=== PATIENT | male | born 1975 | race Caucasian/White ===

== ENCOUNTER 2017-11-14 13:05 | Emergency (ER) | payer BC ==
[2017-11-14 13:27] VITALS: BP 134/94
[2017-11-14] MEDS ORDERED: methylPREDNISolone Sodium Succinate 125 MG/2 ML SDV IM ONE (14:08)
[2017-11-14] MEDS ORDERED: Ketorolac 60 MG/2 ML SDV IM ONE (14:08)
--- NOTE | 2017-11-14 14:17 | EDM.PDOC ---
ED HPI GENERAL MEDICAL PROBLEM - General Chief Complaint: Neck Problem Stated Complaint: LOW BACK, LEFT SHOULDER PAIN Time Seen by Provider: 11/14/17 13:55 Source of Information: Reports: Patient History Limitations: Reports: No Limitations - History of Present Illness INITIAL COMMENTS - FREE TEXT/NARRATIVE: Patient presents with neck and upper back pain for two days. He also has some tingling and occasional weakness in left hand. A couple years ago he had a cervical spine fracture and has chronic pain but worse the last two days. He did go through PT but never had MRI or surgery. No recent injuries or falls. Denies kidney disease. He works as a [employer] and is supposed to start a shift in two hours; he doesn't think he can tolerate this right now. Lower Back Pain Score (Numeric/FACES): 9 - Related Data Allergies Allergy/AdvReac Type Severity Reaction Status Date / Time No Known Drug Allergies Allergy Cannot Verified 05/27/15 15:06 Remember Home Meds: Home Meds . [No Known Home Meds] 05/28/15 [History] Past Medical History - Past Health History Medical/Surgical History: Denies Medical/Surgical History HEENT History: Reports: Impaired Vision Gastrointestinal History: Reports: GERD, Hiatal Hernia Musculoskeletal History: Reports: Back Pain, Chronic Other Musculoskeletal History: cervical neck fx in 2016 Neurological History: Reports: Headaches, Chronic, Migraines Psychiatric History: Reports: Depression - Infectious Disease History Infectious Disease History: Reports: Chicken Pox - Past Surgical History HEENT Surgical History: Reports: Oral Surgery GI Surgical History: Reports: Appendectomy, Colonoscopy, EGD Other GI Surgeries/Procedures: hiatal hernia repaired Musculoskeletal Surgical History: Reports: Arthroscopic Knee Other Musculoskeletal Surgeries/Procedures:: Carpal tunnel release and ulnar nerve transposition. tendonities surgery Social & Family History - Tobacco Use Smoking Status *Q: Current Every Day Smoker Years of Tobacco use: 27 Packs/Tins Daily: 0.5 Used Tobacco, but Quit: No Second Hand Smoke Exposure: No - Caffeine Use Caffeine Use: Reports: Coffee, Soda Other Caffeine Use: regular mt. dew - Alcohol Use Days Per Week of Alcohol Use: 2 Number of Drinks Per Day: 12 Total Drinks Per Week: 24 - Recreational Drug Use Recreational Drug Use: No ED ROS GENERAL - Review of Systems Review Of Systems: See Below Constitutional: Denies: Fever, Chills HEENT: Denies: Vision Change Respiratory: Denies: Shortness of Breath, Cough Cardiovascular: Denies: Chest Pain, Lightheadedness, Syncope GI/Abdominal: Denies: Abdominal Pain, Diarrhea, Vomiting : Reports: No Symptoms Musculoskeletal: Reports: Neck Pain, Back Pain Skin: Denies: Cyanosis, Jaundice, Mottled, Pallor, Diaphoresis Neurological: Denies: Confusion, Dizziness, Headache Psychiatric: Denies: Agitation, Anxiety, Confusion ED EXAM, UPPER BACK/NECK PAIN - Physical Exam Exam: See Below Exam Limited By: No Limitations General Appearance: Alert, WD/WN, No Apparent Distress Eye Exam: Bilateral Eye: EOMI, Normal Inspection, PERRL Ears Exam: Normal External Exam, Hearing Grossly Normal Nose Exam: Normal Inspection, No Blood Throat/Mouth Exam: Normal Lips, Normal Voice, No Airway Compromise Head Exam: Atraumatic, Normocephalic Neck Exam: Paraspinous Muscle Tender (left), Spinous Processes Tender (mild around C5,6) Cardiovascular/Respiratory: Regular Rate, Rhythm, Normal Breath Sounds, No Respiratory Distress Back Exam: Vertebral Tenderness (mild around T3,4) Extremities: Normal Inspection, Other (5/5 strength of hands, arms, straight leg raise, foot dorsiflexion/plantar flexion with resisted full ROM.) Neurologic: No Motor/Sensory Deficits, Alert, Normal Mood/Affect, Oriented x 3 Psychiatric: Normal Affect, Normal Mood Skin Exam: Normal Color, Warm/Dry Course - Vital Signs Last Recorded V/S: Last Vital Signs Temp 97.5 F 11/14/17 13:21 Pulse 65 11/14/17 13:21 Resp 20 11/14/17 13:21 BP 134/94 H 11/14/17 13:21 Pulse Ox 97 11/14/17 13:21 - Orders/Labs/Meds Meds: Medications Discontinued Medications Generic Name Dose Route Start Last Admin Trade Name Freq PRN Reason Stop Dose Admin Ketorolac Tromethamine 60 mg 11/14/17 14:08 Toradol IM 11/14/17 14:09 ONETIME ONE Methylprednisolone Sodium Succinate 125 mg 11/14/17 14:08 Solu-Medrol IM 11/14/17 14:09 ONETIME ONE - Re-Assessments/Exams Free Text/Narrative Re-Assessment/Exam: 11/14/17 14:21 Discussed findings and treatment plan recommendations with patient. With no recent injury xrays/CT not likely to be helpful and the next step to evaluate his nerves would be an MRI. I expect him to notice improvement in the short term with the NSAIDS and steroid, but long-term improvement may require evaluation and treatment by an orthopedic doctor or neurosurgeon. I advised follow up with his PCP tomorrow to set this up. Patient remained stable throughout ER course and was discharged to home following the injections. Departure - Departure Time of Disposition: 14:11 Disposition: Home, Self-Care 01 Condition: Good Clinical Impression: Neck pain on left side, Chronic upper back pain - Discharge Information Referrals: Savi Frost MD [Primary Care Provider] - Additional Instructions: 1. Drink 8 cups of water daily. 2. Take the steroid as directed. 3. Take Naproxen 400 mg every 12 hours or Ibuprofen 600 mg every 8 hours (not both) for at least 4-5 days then as needed. 4. Call your PCP tomorrow morning for appointment to get rechecked and evaluated for referral to specialist and/or MRI.
== END 2017-11-14 14:22 | disposition home or self-care (01) ==
LOC: KA.ED 13:05
DX: G89.29 Other chronic pain (principal); M54.6 Pain in thoracic spine; M54.2 Cervicalgia; F17.210 Nicotine dependence, cigarettes, uncomplicated
CPT/HCPCS: 96372; 99283; J1885; J2930

== ENCOUNTER 2017-11-30 11:12 | Observation (INO) | payer BC ==
--- NOTE | 2017-11-30 11:30 | EDM.PDOC ---
ED HPI GENERAL MEDICAL PROBLEM - General Chief Complaint: Chest Pain Stated Complaint: Chest Pain Time Seen by Provider: 11/30/17 11:21 Source of Information: Reports: Patient History Limitations: Reports: No Limitations - History of Present Illness INITIAL COMMENTS - FREE TEXT/NARRATIVE: PATIENT IS A 42-YEAR-OLD GENTLEMAN WHO PRESENTS TO THE EMERGENCY DEPARTMENT THIS MORNING VIA EMS FOR COMPLAINT OF SUBSTERNAL CHEST PAIN. PATIENT STATES THAT HE WAS AWOKEN AT 0300 TODAY WITH A SENSATION OF CHEST PRESSURE AND TIGHTENING SOME RADIATION IN MIDDLE OF CHEST AND TO LEFT SIDE OF CHEST, BUT NOT EXTENDING TO EXTREMITY OR FACE. PATIENT STATES THAT PAIN PERSISTED, ALTHOUGH HE WENT TO WORK AT 0630 TODAY. PAIN DID NOT RESOLVE, SO HE PRESENTED TO [facility] AND WAS EVALUATED THERE. PROVIDER NOTICED EKG CHANGES, GAVE NITROGLYCERIN SUBLINGUAL AND PAIN WAS SAID TO DIMINISH. EMS WAS CONTACTED AND PATIENT WAS TRANSPORTED TO ER. DURING TRANSPORT, CHEST PAIN PERSISTED, SO PATIENT WAS GIVEN NITROGLYCERIN SUBLINGUAL AND PAIN RESOLVED AGAIN. PATIENT DENIES FAMILY HISTORY OF EARLY CARDIAC INCIDENT, ANY CARDIAC HISTORY OR EVALUATION AT ALL, RECENT UPPER RESPIRATORY INFECTION, OUT OF COUNTRY TRAVEL, LOWER EXTREMITY EDEMA, FEVER, ANY TRAUMA, NAUSEA, DIARRHEA, VOMITING, OR SIMILAR SYMPTOMS IN THE PAST. Onset: Today Onset Date: 11/30/17 Onset Time: 03:00 Duration: Improving Location: Reports: Chest Quality: Reports: Pressure Severity: Mild Improves with: Reports: Medication Worsens with: Reports: None Context: Reports: Other (WHILE AT REST) Treatments RESEARCH DIETITIAN: Reports: Nitroglycerin - Related Data Allergies Allergy/AdvReac Type Severity Reaction Status Date / Time No Known Drug Allergies Allergy Cannot Verified 11/30/17 11:36 Remember Home Meds: Home Meds Cyclobenzaprine HCl [Cyclobenzaprine HCl] 10 mg PO BEDTIME 11/30/17 [History] Ibuprofen 600 mg PO Q4H PRN 11/30/17 [History] Past Medical History - Past Health History Medical/Surgical History: Denies Medical/Surgical History HEENT History: Reports: Impaired Vision Gastrointestinal History: Reports: GERD, Hiatal Hernia Musculoskeletal History: Reports: Back Pain, Chronic Other Musculoskeletal History: cervical neck fx in 2016 Neurological History: Reports: Headaches, Chronic, Migraines Psychiatric History: Reports: Depression - Infectious Disease History Infectious Disease History: Reports: Chicken Pox - Past Surgical History HEENT Surgical History: Reports: Oral Surgery GI Surgical History: Reports: Appendectomy, Colonoscopy, EGD Other GI Surgeries/Procedures: hiatal hernia repaired Musculoskeletal Surgical History: Reports: Arthroscopic Knee Other Musculoskeletal Surgeries/Procedures:: Carpal tunnel release and ulnar nerve transposition. tendonities surgery Social & Family History - Tobacco Use Smoking Status *Q: Current Every Day Smoker Years of Tobacco use: 27 Packs/Tins Daily: 0.5 Used Tobacco, but Quit: No Second Hand Smoke Exposure: No - Caffeine Use Caffeine Use: Reports: Coffee, Soda Other Caffeine Use: regular mt. dew - Alcohol Use Days Per Week of Alcohol Use: 2 Number of Drinks Per Day: 12 Total Drinks Per Week: 24 - Recreational Drug Use Recreational Drug Use: No ED ROS GENERAL - Review of Systems Review Of Systems: ROS reveals no pertinent complaints other than HPI. Constitutional: Reports: No Symptoms HEENT: Reports: No Symptoms Respiratory: Reports: No Symptoms Cardiovascular: Reports: Chest Pain, Palpitations Endocrine: Reports: No Symptoms GI/Abdominal: Reports: No Symptoms : Reports: No Symptoms Musculoskeletal: Reports: No Symptoms Skin: Reports: No Symptoms Neurological: Reports: No Symptoms Psychiatric: Reports: No Symptoms Hematologic/Lymphatic: Reports: No Symptoms Immunologic: Reports: No Symptoms ED EXAM, GENERAL - Physical Exam Exam: See Below Exam Limited By: No Limitations General Appearance: Alert, WD/WN, No Apparent Distress Eye Exam: Bilateral Eye: Normal Inspection Nose: Normal Inspection, Normal Mucosa, No Blood Throat/Mouth: Normal Inspection, Normal Oropharynx, No Airway Compromise Head: Atraumatic, Normocephalic Neck: Normal Inspection, Supple, Non-Tender, Full Range of Motion Respiratory/Chest: No Respiratory Distress, Lungs Clear, Normal Breath Sounds, No Accessory Muscle Use Cardiovascular: Normal Peripheral Pulses, Regular Rate, Rhythm, No Murmur GI/Abdominal: Normal Bowel Sounds, Soft, Non-Tender, No Organomegaly, No Distention, No Abnormal Bruit, No Mass Back Exam: Normal Inspection Extremities: Normal Inspection, No Pedal Edema Neurological: Alert, Oriented, Normal Cognition Psychiatric: Normal Affect, Normal Mood Skin Exam: Warm, Dry, Intact, Normal Color, No Rash Lymphatic: No Adenopathy EKG INTERPRETATION EKG Date: 11/30/17 Time: 11:25 Rhythm: NSR [place]: Normal P-Wave: Present QRS: RBBB QT: Normal Comparison: NA - No Prior EKG EKG Interpretation Comments: T WAVE DEPRESSION LATERAL LEAD Course - Orders/Labs/Meds Orders: Active Orders 24 hr Category Date Time Status EKG Documentation Completion [RC] ASDIRECTED Care 11/30/17 11:23 Ordered Chest 2V [CR] Stat Exams 11/30/17 11:21 Ordered CBC WITH AUTO DIFF [HEME] Stat Lab 11/30/17 11:21 Ordered COMPREHENSIVE METABOLIC PN,CMP [CHEM] Stat Lab 11/30/17 11:21 Ordered D-DIMER QUANTITATIVE [COAG] Stat Lab 11/30/17 11:21 Ordered INR,PT,PROTHROMBIN TIME [COAG] Stat Lab 11/30/17 11:21 Ordered LIPASE [CHEM] Stat Lab 11/30/17 11:21 Ordered MAGNESIUM [CHEM] Stat Lab 11/30/17 11:21 Ordered PTT,PARTIAL THROMBOPLSTIN TIME [COAG] Stat Lab 11/30/17 11:21 Ordered TROPONIN I [CHEM] Stat Lab 11/30/17 11:21 Ordered EKG 12 Lead [EK] Routine Ther 11/30/17 11:23 Ordered - Radiology Interpretation Free Text/Narrative:: CHEST X-RAY SHOWS NO ACUTE PROCESS - Re-Assessments/Exams Free Text/Narrative Re-Assessment/Exam: 11/30/17 12:11 PATIENT AFEBRILE, NONTOXIC APPEARING, VITAL SIGNS STABLE, CHEST PAIN, RESOLVED. CASE DISCUSSED WITH DR. SCHAEFFER AND PATIENT WILL BE ADMITTED TO OBSERVATION STATUS Departure - Departure Time of Disposition: 12:12 Disposition: Refer to Observation Condition: Fair Clinical Impression: Atypical chest pain, Acute electrocardiogram changes Referrals: Juli Albrecht PA-C [Primary Care Provider] - - My Orders Last 24 Hours: My Active Orders 11/30/17 11:21 Chest 2V [CR] Stat CBC WITH AUTO DIFF [HEME] Stat COMPREHENSIVE METABOLIC PN,CMP [CHEM] Stat D-DIMER QUANTITATIVE [COAG] Stat INR,PT,PROTHROMBIN TIME [COAG] Stat LIPASE [CHEM] Stat MAGNESIUM [CHEM] Stat PTT,PARTIAL THROMBOPLSTIN TIME [COAG] Stat TROPONIN I [CHEM] Stat 11/30/17 11:23 EKG Documentation Completion [RC] ASDIRECTED EKG 12 Lead [EK] Routine - Assessment/Plan Last 24 Hours: My Active Orders 11/30/17 11:21 Chest 2V [CR] Stat CBC WITH AUTO DIFF [HEME] Stat COMPREHENSIVE METABOLIC PN,CMP [CHEM] Stat D-DIMER QUANTITATIVE [COAG] Stat INR,PT,PROTHROMBIN TIME [COAG] Stat LIPASE [CHEM] Stat MAGNESIUM [CHEM] Stat PTT,PARTIAL THROMBOPLSTIN TIME [COAG] Stat TROPONIN I [CHEM] Stat 11/30/17 11:23 EKG Documentation Completion [RC] ASDIRECTED EKG 12 Lead [EK] Routine Assessment:: CHEST PAIN Plan: ADMITTED FOR OBSERVATION TO DR. SCHAEFFER'S SERVICE
[2017-11-30 11:52] LABS: CHLORIDE,CL 105 mmol/L (98-115); SODIUM,NA 142 mmol/L (136-145)
[2017-11-30] MEDS ORDERED: Morphine 2 MG/ML Syringe IVPUSH ONE (11:54)
[2017-11-30] MEDS ORDERED: Ondansetron 4 MG Tab.DIS PO PRN (12:13)
[2017-11-30] MEDS ORDERED: Morphine 2 MG/ML Syringe IVPUSH PRN (12:13)
[2017-11-30] MEDS ORDERED: Sodium Chloride 0.9% 5 ML Syringe FLUSH PRN (12:16)
[2017-11-30] MEDS ORDERED: Nitroglycerin 0.4 MG Tab.SL SL PRN (13:32)
[2017-11-30] MEDS ORDERED: Lidocaine 2% 100 MG/5 ML Syringe IVPUSH PRN (13:32)
[2017-11-30] MEDS ORDERED: Atropine 0.1 MG/ML 10 ML Syringe IVPUSH PRN (13:32)
[2017-11-30] MEDS ORDERED: EPINEPHrine 1:10,000 1 MG/10 ML Syringe IVPUSH PRN (13:32)
[2017-12-01 06:22] VITALS: BP 134/82
--- NOTE | 2017-12-01 08:56 | PCM.DCSUM1 ---
Discharge Summary - Hospital Course Free Text/Narrative:: Bg is being discharged from observation stay 11/30 - 12/01 for chest pain. He was admitted yesterday with substernal chest pain that woke him up at 0300 on 11/30 with radiation to the left chest but not to the arm or jaw. No N/V or diaphoresis. He states he went to work but it had not subsided and so he went to the [facility] where they noted some inverted T waves on EKG and sent him by ambulance to the ER for further work-up. Of note, his chest pain did improve with nitroglycerin. He has a family history of heart disease in a paternal aunt and paternal uncle but no first degree relatives with heart disease. He is a smoker. D-dimer was <100, troponin initially was 0.04, recheck was 0.05 and this AM was <0.04. His pain has subsided. Lipids checked this morning showed a total cholesterol of 171, LDL of 112, HDL of 42 and triglycerides were 86. He is not on a statin as an outpatient. He has been ruled out for cardiac chest pain with negative troponins. He was counseled about smoking cessation and plans to quit. He also will be scheduled for an outpatient cardiolite stress test. Follow-up in clinic in 1-2 weeks. - Discharge Data Discharge Date: 12/01/17 Discharge Disposition: Home, Self-Care 01 Condition: Good - Patient Summary/Data Recommended Follow-up Testing/Procedures: Cardiolite stress test. - Patient Instructions Diet: Regular Diet as Tolerated Activity: As Tolerated - Discharge Plan Home Medications: Home Meds Cyclobenzaprine HCl 10 mg PO BEDTIME 11/30/17 [History] Ibuprofen 600 mg PO Q4H PRN 11/30/17 [History] Referrals: Juli Albrecht PA-C [Physician] - - Discharge Summary/Plan Comment DC Time >30 min.: No - General Info Date of Service: 12/01/17 - Review of Systems Systems Review Comment: 10 point ROS obtained, all pertinent positives listed in the HPI, all other systems are negative. - Patient Data Vitals - Most Recent: Last Vital Signs Temp 97.8 F 12/01/17 06:21 Pulse 68 12/01/17 06:21 Resp 18 12/01/17 06:21 BP 134/82 12/01/17 06:21 Pulse Ox 95 12/01/17 06:21 Weight - Most Recent: 295 lb I&O - Last 24 hours: Intake & Output 11/30/17 12/01/17 12/01/17 22:59 06:59 14:59 Intake Total 660 150 Output Total 0 Balance 660 150 Lab Results - Last 24 hrs: Laboratory Results - last 24 hr 11/30/17 12/01/17 Range/Units 16:05 07:10 Troponin I 0.05 < 0.04 (0.00-0.070) ng/mL Triglycerides 86 (30-150) mg/dL Cholesterol 171 (100-199) mg/dL LDL Cholesterol, Calc 112 H (0-100) mg/dL HDL Cholesterol 42 (40-60) mg/dL Med Orders - Current: Current Medications Atropine Sulfate (Atropine 0.1 Mg/Ml) 0 mg IVPUSH ASDIRECTED PRN PRN Reason: Heart Epinephrine HCl (Epinephrine 1:10,000) 1 mg IVPUSH ASDIRECTED PRN PRN Reason: Heart Lidocaine HCl (Xylocaine 2%) 0 mg IVPUSH ASDIRECTED PRN PRN Reason: Heart Morphine Sulfate (Morphine) 2 mg IVPUSH Q2H PRN PRN Reason: Pain (severe 7-10) Last Admin: 11/30/17 19:38 Dose: 2 mg Nitroglycerin (Nitrostat) 0.4 mg SL ASDIRECTED PRN PRN Reason: Heart Ondansetron HCl (Zofran Odt) 4 mg PO Q4H PRN PRN Reason: nausea, able to take PO Sodium Chloride (Syrex Flush) 5 ml FLUSH Q8HR PRN PRN Reason: Keep Vein Open Discontinued Medications Morphine Sulfate (Morphine) 2 mg IVPUSH ONETIME ONE Stop: 11/30/17 11:55 Last Admin: 11/30/17 11:59 Dose: 2 mg - Exam General: Reports: Alert, Oriented, Cooperative, No Acute Distress Lungs: Reports: Clear to Auscultation, Normal Respiratory Effort Cardiovascular: Reports: Regular Rate, Regular Rhythm, No Murmurs *Q Meaningful Use (DIS) - VTE *Q VTE Criteria *Q: - Stroke *Q Stroke Criteria *Q: - AMI *Q AMI Criteria *Q:
== END 2017-12-01 10:20 | disposition home or self-care (01) ==
LOC: KA.ED 11:12 → KA.MS 12:13 → KA.ED 12:13
PROVIDERS: ADMIT Physician Assistant Surgical; ATTEND Internal Medicine
DX: R07.2 Precordial pain (principal); K21.9 Gastro-esophageal reflux disease without esophagitis; F32.9 Major depressive disorder, single episode, unspecified; F17.210 Nicotine dependence, cigarettes, uncomplicated; Z82.49 Family history of ischemic heart disease and other diseases of the circulatory system; Z90.49 Acquired absence of other specified parts of digestive tract; Z98.890 Other specified postprocedural states
CPT/HCPCS: 36415; 71046; 80053; 80061; 83690; 83735; 84484; 85025; 85379; 85610; 85730; 93005; 96374; 96376; 99285; G0378; J2270

== ENCOUNTER 2018-02-12 07:40 | Emergency (ER) | payer SELFPAY ==
[2018-02-12] MEDS ORDERED: Bacitracin/Neomycin/Polymyxin B Oint 0.9 GM U/D Packet ONE (08:19)
[2018-02-12] MEDS ORDERED: Lidocaine 2% 5 ML SDV INJECT ONE (08:27)
[2018-02-12 08:32] VITALS: BP 143/91
--- NOTE | 2018-02-12 08:34 | EDM.PDOC ---
ED HPI GENERAL MEDICAL PROBLEM - General Chief Complaint: Lower Extremity Injury/Pain Stated Complaint: Laceration Time Seen by Provider: 02/12/18 08:27 Source of Information: Reports: Patient History Limitations: Reports: No Limitations - History of Present Illness INITIAL COMMENTS - FREE TEXT/NARRATIVE: Patient is a 42-year-old gentleman who presents to the emergency department this morning with a complaint of right lower extremity laceration. Patient states while he was making coffee this morning a coffee cup fell to the floor and a jagged piece cut his right lower extremity. Patient denies any other injury, chest pain, shortness of breath, or bleeding issues. Patient is up-to- date with tetanus. Onset: Today Duration: Hour(s): Location: Reports: Lower Extremity, Right Severity: Mild Improves with: Reports: None Worsens with: Reports: None Context: Reports: Trauma Associated Symptoms: Reports: No Other Symptoms - Related Data Allergies Allergy/AdvReac Type Severity Reaction Status Date / Time No Known Drug Allergies Allergy Cannot Verified 02/12/18 07:41 Remember Home Meds: Home Meds Citalopram Hydrobromide [Celexa] 20 mg PO DAILY 02/12/18 [History] Past Medical History - Past Health History Medical/Surgical History: Denies Medical/Surgical History HEENT History: Reports: Impaired Vision Gastrointestinal History: Reports: GERD, Hiatal Hernia Musculoskeletal History: Reports: Back Pain, Chronic Other Musculoskeletal History: cervical neck fx in 2016 Neurological History: Reports: Headaches, Chronic, Migraines Psychiatric History: Reports: Depression - Infectious Disease History Infectious Disease History: Reports: Chicken Pox - Past Surgical History HEENT Surgical History: Reports: Oral Surgery GI Surgical History: Reports: Appendectomy, Colonoscopy, EGD Other GI Surgeries/Procedures: hiatal hernia repaired Musculoskeletal Surgical History: Reports: Arthroscopic Knee Other Musculoskeletal Surgeries/Procedures:: Carpal tunnel release and ulnar nerve transposition. tendonities surgery Social & Family History - Family History Family Medical History: Noncontributory - Tobacco Use Smoking Status *Q: Current Every Day Smoker Years of Tobacco use: 27 Packs/Tins Daily: 0.5 Used Tobacco, but Quit: No Second Hand Smoke Exposure: No - Caffeine Use Caffeine Use: Reports: Coffee Other Caffeine Use: regular mt. de Caffeine Use Comment: 1 large cup of coffee this morning - Alcohol Use Days Per Week of Alcohol Use: 2 Number of Drinks Per Day: 12 Total Drinks Per Week: 24 - Recreational Drug Use Recreational Drug Use: No Review of Systems - Review of Systems Review Of Systems: ROS reveals no pertinent complaints other than HPI. Constitutional: Reports: No Symptoms Eyes: Reports: No Symptoms Ears: Reports: No Symptoms Nose: Reports: No Symptoms Mouth/Throat: Reports: No Symptoms Respiratory: Reports: No Symptoms Cardiovascular: Reports: No Symptoms GI/Abdominal: Reports: No Symptoms Genitourinary: Reports: No Symptoms Musculoskeletal: Reports: No Symptoms Skin: Reports: Wound (Right lateral lower extremity) Neurological: Reports: No Symptoms Psychiatric: Reports: No Symptoms ED EXAM, GENERAL - Physical Exam Exam: See Below Exam Limited By: No Limitations General Appearance: Alert, WD/WN, No Apparent Distress Throat/Mouth: Normal Inspection, Normal Oropharynx, No Airway Compromise Head: Atraumatic, Normocephalic Respiratory/Chest: No Respiratory Distress Extremities: Other (Right lateral tib-fib with a 3 cm linear laceration wound exposed and no porcelain fragments noted.) Neurological: Alert, Oriented, Normal Cognition Psychiatric: Normal Affect, Normal Mood Skin Exam: Warm, Dry, Normal Color, No Rash ED TRAUMA EXTREMITY PROCEDURES - Laceration/Wound Repair Right Lateral Leg Lac/Wound Length In cm: 3 Appearance: Superficial Distal NVT: Neuro & Vascular Intact, No Tendon Injury Anesthetic Type: Local Local Anesthesia - Lidocaine (Xylocaine): 1% Plain Local Anesthetic Volume: 2cc Skin Prep: Providone-Iodine (Betadine) Exploration/Debridement/Repair: Wound Explored, Explored to Base Closed With: [place] Sterile Dressing Applied: Nurse Tetanus Status Addressed: Yes Complications: No Course - Orders/Labs/Meds Meds: Medications Discontinued Medications Generic Name Dose Route Start Last Admin Trade Name Skye PRN Reason Stop Dose Admin Lidocaine 5 ml 02/12/18 08:27 Xylocaine-Mpf 2% INJECT 02/12/18 08:28 ONETIME ONE Neomycin/Polymyxin/Bacitracin Confirm 02/12/18 08:19 Triple Antibiotic Oint Administered 02/12/18 08:20 Dose 1 each .ROUTE .STK-MED ONE - Re-Assessments/Exams Free Text/Narrative Re-Assessment/Exam: 02/12/18 08:34 Patient afebrile, nontoxic appearing, vital signs stable, tolerated procedure well. [place] will be removed in 10 days. Departure - Departure Time of Disposition: 08:35 Disposition: Home, Self-Care 01 Condition: Good Clinical Impression: Leg laceration Qualifiers: Encounter type: initial encounter Laterality: right Qualified Code(s): S81.811A - Laceration without foreign body, right lower leg, initial encounter - Discharge Information Instructions: Stitches, Neto, or Adhesive Wound Closure, [id number], Sutured Wound Care, [id number] Referrals: Savi Frost MD [Primary Care Provider] - Forms: ED Department Discharge Additional Instructions: Follow-up with Dr. Cohn in 10 days for staple removal. Return to emergency room sooner if symptoms continue or worsen. - Assessment/Plan Assessment:: Laceration to right lower extremity Plan: Follow-up with PCP for staple removal in 10 days
== END 2018-02-12 08:40 | disposition home or self-care (01) ==
LOC: KA.ED 07:40
DX: S81.811A Laceration without foreign body, right lower leg, initial encounter (principal); F17.210 Nicotine dependence, cigarettes, uncomplicated; W45.8XXA Other foreign body or object entering through skin, initial encounter; Z79.899 Other long term (current) drug therapy
CPT/HCPCS: 12001; 12002; 99283

== ENCOUNTER 2019-03-09 08:15 | Emergency (ER) | payer BC ==
[2019-03-09] MEDS ORDERED: Aspirin 81 MG Tab.Chew PO ONE (08:47)
[2019-03-09] MEDS ORDERED: Aspirin 81 MG Tab.Chew ONE (08:49)
[2019-03-09] MEDS ORDERED: Nitroglycerin 0.4 MG Tab.SL SL ONE (09:09)
[2019-03-09] MEDS ORDERED: Nitroglycerin 0.4 MG Tab.SL ONE (09:09)
[2019-03-09] MEDS ORDERED: Sodium Chloride 0.9% 1,000 ML IV ONE (09:12)
--- NOTE | 2019-03-09 09:12 | EDM.PDOC ---
ED HPI GENERAL MEDICAL PROBLEM - General Stated Complaint: chest squeezing and headache Time Seen by Provider: 03/09/19 08:43 Source of Information: Reports: Patient History Limitations: Reports: No Limitations - History of Present Illness INITIAL COMMENTS - FREE TEXT/NARRATIVE: Patient presents with complaint of chest squeezing/tightness and worst headache of his life that woke him up at 0200 this morning and have been persistent since then. He also has tingling in left samaritan/ear/jaw area but no pain there or in neck, shoulder, arm. He had a cardiac stress test about 14 months ago after some similar chest symptoms, that was normal. He smokes but is reducing amounts in attempts to quit and is now less than 1/2 ppd. - Related Data Allergies Allergy/AdvReac Type Severity Reaction Status Date / Time No Known Drug Allergies Allergy Cannot Verified 02/12/18 07:41 Remember Home Meds: Home Meds Citalopram Hydrobromide [Celexa] 20 mg PO DAILY 02/12/18 [History] Past Medical History - Past Health History Medical/Surgical History: Denies Medical/Surgical History HEENT History: Reports: Impaired Vision Cardiovascular History: Reports: High Cholesterol Gastrointestinal History: Reports: GERD, Hiatal Hernia Musculoskeletal History: Reports: Back Pain, Chronic Other Musculoskeletal History: cervical neck fx in 2016 Neurological History: Reports: Headaches, Chronic, Migraines Psychiatric History: Reports: Depression Endocrine/Metabolic History: Reports: Obesity/BMI 30+ - Infectious Disease History Infectious Disease History: Reports: Chicken Pox - Past Surgical History HEENT Surgical History: Reports: Oral Surgery GI Surgical History: Reports: Appendectomy, Colonoscopy, EGD Other GI Surgeries/Procedures: hiatal hernia repaired Musculoskeletal Surgical History: Reports: Arthroscopic Knee Other Musculoskeletal Surgeries/Procedures:: Carpal tunnel release and ulnar nerve transposition. tendonities surgery Social & Family History - Family History Family Medical History: Noncontributory - Caffeine Use Caffeine Use: Reports: Coffee Other Caffeine Use: regular mt. dew Caffeine Use Comment: 1 large cup of coffee this morning ED ROS GENERAL - Review of Systems Review Of Systems: See Below Constitutional: Reports: Diaphoresis (around neck and chest when he awoke). Denies: Fever, Chills, Malaise, Weakness HEENT: Reports: Vision Change (gets a little blurry and feels nauseated when he stands up). Denies: Ear Discharge, Ear Pain, Eye Pain Respiratory: Reports: Shortness of Breath. Denies: Cough Cardiovascular: Reports: Chest Pain, Lightheadedness. Denies: Syncope Endocrine: Reports: No Symptoms GI/Abdominal: Reports: Nausea. Denies: Abdominal Pain, Diarrhea, Vomiting : Reports: No Symptoms Musculoskeletal: Denies: Neck Pain, Shoulder Pain, Arm Pain, Back Pain, Hand Pain, Leg Pain Skin: Denies: Cyanosis, Jaundice, Mottled, Pallor, Diaphoresis Neurological: Reports: Dizziness, Headache, Tingling. Denies: Confusion, Seizure, Syncope, Trouble Speaking, Difficulty Walking Psychiatric: Denies: Agitation, Anxiety, Confusion ED EXAM, GENERAL - Physical Exam Exam: See Below Exam Limited By: No Limitations General Appearance: Alert, WD/WN, No Apparent Distress Eye Exam: Bilateral Eye: EOMI, Normal Inspection, PERRL Ears: Normal External Exam, Hearing Grossly Normal Nose: Normal Inspection, No Blood Throat/Mouth: Normal Inspection, Normal Lips, Normal Voice, No Airway Compromise Head: Atraumatic, Normocephalic Neck: Normal Inspection, Supple, Non-Tender, Full Range of Motion. No: Carotid Bruit, Lymphadenopathy (L), Lymphadenopathy (R) Respiratory/Chest: No Respiratory Distress, Lungs Clear, Normal Breath Sounds, No Accessory Muscle Use Cardiovascular: Regular Rate, Rhythm, No Murmur GI/Abdominal: Normal Bowel Sounds, Soft, Non-Tender, No Distention Back Exam: Normal Inspection, Full Range of Motion. No: CVA Tenderness (L), CVA Tenderness (R) Extremities: Normal Inspection, Normal Range of Motion, Non-Tender, Normal Capillary Refill, Other (5/5 symmetric hand manager cardiovascular, resisted arm and leg raise) Neurological: Alert, Oriented, CN II-XII Intact, Normal Cognition, No Motor/ Sensory Deficits Psychiatric: Normal Affect, Normal Mood Skin Exam: Warm, Dry, Intact, Normal Color, No Rash Course - Vital Signs Last Recorded V/S: Last Vital Signs Temp 98.1 F 03/09/19 09:17 Pulse 63 03/09/19 09:17 Resp 18 03/09/19 09:17 BP 162/81 H 03/09/19 09:17 Pulse Ox 99 03/09/19 09:17 - Orders/Labs/Meds Orders: Active Orders 24 hr Category Date Time Status EKG Documentation Completion [RC] ASDIRECTED Care 03/09/19 08:47 Active EKG 12 Lead [EK] Routine Ther 03/09/19 08:47 Ordered Labs: Laboratory Tests 03/09/19 03/09/19 Range/Units 09:00 09:00 WBC 6.37 (5.00-10.00) 10^3/uL RBC 5.35 (4.50-6.00) 10^6/uL Hgb 15.7 (13.0-17.0) g/dL Hct 46.2 (40.0-52.0) % MCV 86.4 D (82.0-92.0) fL MCH 29.3 (27.0-31.0) pg MCHC 34.0 (32.0-36.0) g/dL RDW 12.9 (11.5-14.5) % Plt Count 326 (150-400) 10^3/uL MPV 9.5 (7.4-10.4) fL Immature Gran % (Auto) 0.3 (0.0-5.0) % Neut % (Auto) 61.0 (50.0-70.0) % Lymph % (Auto) 29.8 (20.0-40.0) % [place] % (Auto) 5.5 (2.0-8.0) % Eos % (Auto) 2.5 (1.0-3.0) % Baso % (Auto) 0.9 (0.0-1.0) % Immature Gran # (Auto) 0.02 (0.00-0.50) 10^3/uL Neut # (Auto) 3.88 (2.50-7.00) 10^3/uL Lymph # (Auto) 1.90 (1.00-4.00) 10^3/uL [place] # (Auto) 0.35 (0.10-0.80) 10^3/uL Eos # (Auto) 0.16 (0.10-0.30) 10^3/uL Baso # (Auto) 0.06 (0.00-0.10) 10^3/uL Sodium 139 (136-145) mmol/L Potassium 4.7 (3.3-5.3) mmol/L Chloride 102 (98-115) mmol/L Carbon Dioxide 25.5 (21.0-32.0) mmol/L Anion Gap 16.2 H (5-15) mmol/L BUN 15 (6-25) mg/dL Creatinine 0.88 (0.51-1.17) mg/dL Est Cr Clr Drug Dosing 123.58 mL/min Estimated GFR (MDRD) > 60 mL/min Glucose 118 H (75 - 99) mg/dL Calcium 8.8 (8.7-10.3) mg/dL Troponin I 0.05 (0.00-0.070) ng/mL Meds: Medications Discontinued Medications Generic Name Dose Route Start Last Admin Trade Name Freq PRN Reason Stop Dose Admin Aspirin 324 mg 03/09/19 08:47 03/09/19 08:51 Aspirin PO 03/09/19 08:48 324 mg ONETIME ONE Administration Aspirin Confirm 03/09/19 08:49 03/09/19 09:11 Aspirin Administered 03/09/19 08:50 Not Given Dose 324 mg .ROUTE .STK-MED ONE Diphenhydramine HCl 50 mg 03/09/19 09:49 03/09/19 10:21 Benadryl IVPUSH 03/09/19 09:50 50 mg ONETIME ONE Administration Sodium Chloride 1,000 mls @ 999 mls/hr 03/09/19 09:12 03/09/19 09:16 Normal Saline IV 03/09/19 10:12 999 mls/hr .BOLUS ONE Administration Ketorolac Tromethamine 30 mg 03/09/19 09:49 03/09/19 10:24 Toradol IVPUSH 03/09/19 09:50 30 mg ONETIME ONE Administration Nitroglycerin Confirm 03/09/19 09:09 03/09/19 09:12 Nitrostat Administered 03/09/19 09:10 0.4 mg Dose Administration 0.4 mg .ROUTE .STK-MED ONE Ondansetron HCl 4 mg 03/09/19 09:49 03/09/19 10:28 Zofran IVPUSH 03/09/19 09:50 4 mg ONETIME ONE Administration - Re-Assessments/Exams Free Text/Narrative Re-Assessment/Exam: 03/09/19 09:50 EKG and labs (including trop) are normal. With the normal troponin that was drawn 6.5 hours after the onset of symptoms I feel there is no need for serial troponins. Patient is feeling better and chest tightness is gone after a nitro tab. It was diminishing gradually prior to the nitro also. 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 Will give migraine cocktail now for the headache which has not subsided. 03/09/19 11:37 Patient is feeling well and completely pain free now after the migraine cocktail. He rested quietly during the IV treatment and now feels ready to go home. We discussed findings and recommendations. It is possible he will need another stress test or possibly angiogram to evaluate this further but he is stable now after a single nitro. Patient will follow up tomorrow with Dr. Estella briseno and is discharged to home in stable condition. Departure - Departure Time of Disposition: 11:33 Disposition: Home, Self-Care 01 Condition: Good Clinical Impression: Migraine Qualifiers: Migraine type: unspecified Status migrainosus presence: without status migrainosus Intractability: not intractable Qualified Code(s): G43.909 - Migraine, unspecified, not intractable, without status migrainosus Chest pain Qualifiers: Chest pain type: unspecified Qualified Code(s): R07.9 - Chest pain, unspecified Referrals: Savi Frost MD [Primary Care Provider] - Additional Instructions: 1. Try to get rest today. 2. Follow up with Dr. Guerra tomorrow if possible. 3. Return to ER if chest pain returns. - My Orders Last 24 Hours: My Active Orders 03/09/19 08:47 EKG Documentation Completion [RC] ASDIRECTED EKG 12 Lead [EK] Routine - Assessment/Plan Last 24 Hours: My Active Orders 03/09/19 08:47 EKG Documentation Completion [RC] ASDIRECTED EKG 12 Lead [EK] Routine
[2019-03-09 09:28] VITALS: BP 124/65
--- NOTE | 2019-03-09 09:36 | CT ---
[id number] CT/CT Head WO IV EXAM: CT Head WO IV CLINICAL DATA: LEFT SIDED HEADACHE. COMPARISON STUDY: None FINDINGS: No intracranial hemorrhage, extra-axial fluid collection, mass, or acute ischemia. There is asymmetric atrophy of the entire right cerebral hemisphere with ex vacuo dilatation of the right ventricle. The left cerebral hemisphere is normal in appearance. The cerebellum is normal and symmetric. Soft tissues are unremarkable. Paranasal sinuses and mastoid air cells are clear. 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 This is nonspecific and may be related to congenital insult. No definite acute intracranial process. Gregory Montiel DO 03/09/19 0933 Thank you for allowing us to participate in the care of your patient.
[2019-03-09 09:37] LABS: ANION GAP 16.2 mmol/L (5-15); CHLORIDE,CL 102 mmol/L (98-115); SODIUM,NA 139 mmol/L (136-145)
[2019-03-09] MEDS ORDERED: Ketorolac 30 MG/ML SDV IVPUSH ONE (09:49)
[2019-03-09] MEDS ORDERED: Ondansetron 4 MG/2 ML SDV IVPUSH ONE (09:49)
[2019-03-09] MEDS ORDERED: diphenhydrAMINE 50 MG/ML SDV IVPUSH ONE (09:49)
== END 2019-03-09 11:35 | disposition home or self-care (01) ==
LOC: KA.ED 08:15
DX: G43.909 Migraine, unspecified, not intractable, without status migrainosus (principal); R07.9 Chest pain, unspecified; E78.00 Pure hypercholesterolemia, unspecified; F32.9 Major depressive disorder, single episode, unspecified; Z79.899 Other long term (current) drug therapy
CPT/HCPCS: 70450; 80048; 84484; 85025; 93005; 96361; 96374; 96375; 99285; A9270; J1200; J1885; J2405; J7030